=== PATIENT | male | born 1970 | race Caucasian/White ===

== ENCOUNTER 2021-03-03 10:57 | Emergency (ER) | payer OTHER ==
--- NOTE | 2021-03-03 12:10 | EDM.PDOC ---
ED HPI GENERAL MEDICAL PROBLEM - General Chief Complaint: General Stated Complaint: LIGHT HEAD WHILE DRIVING Time Seen by Provider: 03/03/21 11:36 Source of Information: Reports: Patient, RN Notes Reviewed History Limitations: Reports: No Limitations - History of Present Illness INITIAL COMMENTS - FREE TEXT/NARRATIVE: 50-year-old gentleman presents emergency department today with complaint of lightheadedness dizziness sensation he has had the symptoms for about a year and a half he has had extensive work-up including CT CTA as well as a consultation with neurology no etiology is this found neurology felt this was not neurologic. He states he will get a couple of these events 2-3 times per week this particular event happened while he was driving when it occurred he states he can reproduce the event with certain neck positioning and as well as doing dumbbell flies which include an arm abduction - Related Data Allergies Allergy/AdvReac Type Severity Reaction Status Date / Time No Known Allergies Allergy Verified 03/03/21 11:17 Home Meds: Home Meds NK [No Known Home Meds] 03/03/21 [History] Past Medical History HEENT History: Reports: Impaired Vision Social & Family History - Tobacco Use Tobacco Use Status *Q: Current Some Day Tobacco User Years of Tobacco use: 4 Packs/Tins Daily: 0.5 - Caffeine Use Caffeine Use: Reports: Coffee, Soda Other Caffeine Use: 2 cups coffee per day. diet coke with mixed drinks - Alcohol Use Days Per Week of Alcohol Use: 2 Number of Drinks Per Day: 6 Total Drinks Per Week: 12 - Recreational Drug Use Recreational Drug Use: No ED ROS GENERAL - Review of Systems Review Of Systems: See Below Constitutional: Reports: No Symptoms Respiratory: Reports: No Symptoms Cardiovascular: Reports: No Symptoms Neurological: Reports: Numbness, Tingling ED EXAM, GENERAL - Physical Exam Exam: See Below Exam Limited By: No Limitations General Appearance: Alert, WD/WN, No Apparent Distress Respiratory/Chest: No Respiratory Distress, Lungs Clear, Normal Breath Sounds, No Accessory Muscle Use, Chest Non-Tender Cardiovascular: Regular Rate, Rhythm, No Murmur Neurological: No Motor/Sensory Deficits Course - Vital Signs Last Recorded V/S: Last Vital Signs Temp 98.1 F 03/03/21 11:17 Pulse 85 03/03/21 11:17 Resp 16 03/03/21 11:17 BP 146/82 H 03/03/21 11:17 Pulse Ox 99 11/11/21 11:17 Departure - Departure Time of Disposition: 12:09 Disposition: Home, Self-Care 01 Condition: Fair Clinical Impression: Numbness - Discharge Information Referrals: PCP,None [Primary Care Provider] - Additional Instructions: I recommend starting a journal record when the event happens what positions your arms were in the type of symptoms you are having, also please keep your follow- up appointment with your primary care review the thoracic outlet syndrome literature and to see if this fits with your symptoms and is worth further evaluation which you can discuss with your primary care. Sepsis Event Note (ED) - Evaluation Sepsis Screening Result: No Definite Risk - Focused Exam Vital Signs: Vital Signs Temp Pulse Resp BP Pulse Ox 03/03/21 11:17 98.1 F 85 16 146/82 H 99 03/03/21 11:13 98.1 F 85 16 146/82 H 99 - Assessment/Plan Plan: Assessment Acuity = acute Site and laterality = numbness and tingling Etiology = unknown consider thoracic outlet syndrome Manifestations = none Location of injury = Home Lab values = none Plan We discussed options including further work-up in the emergency department which she declined at this time, I have asked him to do a journal to record arm position when he gets the symptoms and what he is doing at that time I provided him a handout on thoracic outlet syndrome he is can follow-up with his primary care to discuss further evaluation. He has an appointment in 1 week This note was dictated using [employer] voice recognition software please call with any questions on syntax or grammar.
== END 2021-03-03 12:27 | disposition home or self-care (01) ==
LOC: JP.ED 10:57
DX: R20.0 Anesthesia of skin (principal); Z72.0 Tobacco use
CPT/HCPCS: 99283